=== PATIENT | male | born 1935 | race Caucasian/White ===

== ENCOUNTER → 2023-05-31 09:48 | Outpatient (REF) | payer MEDICARE, BC, SELFPAY ==
[2023-05-31 13:13] LABS: ALT (SGPT) 21 U/L (0-50); AST (SGOT) 19 U/L (17-59); Albumin 3.6 g/dl (3.5-5.0); Alkaline Phosphatase 83 U/L (38-126); Blood Urea Nitrogen 17 mg/dl (9-20); Carbon Dioxide 30 mmol/L (22-30); Chloride 102 mmol/L (98-107); Glucose 140 mg/dl (70-99); HDL Cholesterol 38 mg/dl; LDL Cholesterol, Calculated 5 mg/dl; Sodium 140 mmol/L (135-145); Total Bilirubin 0.7 mg/dl (0.2-1.3); Total Cholesterol 122 mg/dl (50-199); Total Protein 5.8 g/dl (6.3-8.2); Triglyceride 397 mg/dl (10-149); Very Low Density Lipoprotein 79 mg/dl (0-30); eGFR > 60.00
[2023-05-31 13:54] LABS: Microalbumin, Random Urine 3.5 mg/dl (0.6-1.7)
== END ==
LOC: HWLAB 09:48
PROVIDERS: ATTENDING PHYSICIAN Internal Medicine; REFERRING PHYSICIAN Internal Medicine Cardiovascular Disease
DX: E11.59 Type 2 diabetes mellitus with other circulatory complications (principal); I25.10 Atherosclerotic heart disease of native coronary artery without angina pectoris; E78.2 Mixed hyperlipidemia
CPT/HCPCS: 36415; 80053; 80061; 82043; 83036

== ENCOUNTER → 2023-07-21 10:05 | Outpatient (REF) | payer MEDICARE, BC, SELFPAY | LOC: HWRAD 10:05 | PROVIDERS: ATTENDING PHYSICIAN Internal Medicine Hematology & Oncology; FAMILY PHYSICIAN Internal Medicine | DX: C91.40 Hairy cell leukemia not having achieved remission (principal) | CPT/HCPCS: 76705 ==

== ENCOUNTER → 2023-08-01 09:38 | Outpatient (REF) | payer MEDICARE, BC, SELFPAY ==
[2023-08-01 11:44] LABS: % Basophils 0.4 % (0-2); % Eosinophils 1.1 % (0-6); % Immature Granulocytes 0.3 % (0-0.5); % Lymphocytes 59.7 % (20.5-51.1); % Monocytes 5.7 % (1.7-9.3); % Neutrophils 32.8 % (42.2-75.2); Absolute Eosinophils 0.1 10^3/uL (0-0.7); Absolute Lymphocytes 4.4 10^3/uL (1.2-3.4); Absolute Monocytes 0.4 10^3/uL (0.1-0.6); Absolute Neutrophils 2.4 10^3/uL (1.4-6.5); Hemoglobin 14.3 g/dL (13.0-18.0); Mean Corp Hgb Conc. 34.9 g/dL (33.0-37.0); Mean Corpuscular Hgb 32.3 pg (27.0-31.0); Mean Corpuscular Volume 92.6 fL (80.0-94.0); Mean Platelet Volume 11.5 fL (7.4-10.4); Nucleated Red Blood Cells % 0 % (-); Platelet Count 120 10^3/uL (130-400); Red Blood Cell Count 4.43 10^6/uL (4.70-6.10); Red Cell Dist. Width 12.9 % (11.5-14.5); White Blood Cell Count 7.4 10^3/uL (4.8-10.8)
[2023-08-03 07:41] LABS: Number Of Markers 26 markers; Source Blood
[2023-08-04 05:30] LABS: Albumin 4.07 g/dL (3.75-5.01); Alpha 1 Globulin 0.25 g/dL (0.19-0.46); Alpha 2 Globulin 0.71 g/dL (0.48-1.05); Free Kappa Light Chains,Quant 16.18 mg/L (3.30-19.40); Free Lambda Light Chains,Quant 11.24 mg/L (5.71-26.30); IgA 104 mg/dL (68-408); IgG 533 mg/dL (768-1632); IgM 51 mg/dL (35-263); Immunofixation Electrophoresis IFE Done; Kappa/Lambda Fr Light Ratio 1.44 (0.26-1.65); Total Protein-Electrophoresis 6.2 g/dL (6.3-8.2)
== END ==
LOC: HWLAB 09:38
PROVIDERS: ATTENDING PHYSICIAN Internal Medicine Hematology & Oncology; FAMILY PHYSICIAN Internal Medicine
DX: C91.40 Hairy cell leukemia not having achieved remission (principal); C91.11 Chronic lymphocytic leukemia of B-cell type in remission; R78.81 Bacteremia; D80.1 Nonfamilial hypogammaglobulinemia
CPT/HCPCS: 36415; 82784; 83521; 84155; 84165; 85025; 86334

== ENCOUNTER → 2023-10-18 12:32 | Outpatient (REF) | payer MEDICARE, BC, SELFPAY | LOC: HWLAB 12:32 | PROVIDERS: ATTENDING PHYSICIAN Specialist; FAMILY PHYSICIAN Internal Medicine | DX: C61 Malignant neoplasm of prostate (principal) | CPT/HCPCS: 36415; 84153 ==

== ENCOUNTER → 2023-11-02 12:31 | Outpatient (REF) | payer MEDICARE, BC, SELFPAY ==
[2023-11-02 15:40] LABS: Hematocrit 41.9 % (39.0-52.0); Hemoglobin 14.7 g/dL (13.0-18.0); Mean Corp Hgb Conc. 35.1 g/dL (33.0-37.0); Mean Corpuscular Hgb 32.3 pg (27.0-31.0); Mean Corpuscular Volume 92.1 fL (80.0-94.0); Mean Platelet Volume 11.2 fL (7.4-10.4); Platelet Count 132 10^3/uL (130-400); Red Blood Cell Count 4.55 10^6/uL (4.70-6.10); Red Cell Dist. Width 12.8 % (11.5-14.5); White Blood Cell Count 8.4 10^3/uL (4.8-10.8)
[2023-11-02 16:51] LABS: % Basophils 0.5 % (0-2); % Eosinophils 1.4 % (0-6); % Immature Granulocytes 0.2 % (0-0.5); % Lymphocytes 59.2 % (20.5-51.1); % Monocytes 5.5 % (1.7-9.3); % Neutrophils 33.2 % (42.2-75.2); Absolute Eosinophils 0.1 10^3/uL (0-0.7); Absolute Monocytes 0.5 10^3/uL (0.1-0.6); Absolute Neutrophils 2.8 10^3/uL (1.4-6.5); Nucleated Red Blood Cells % 0 % (-)
== END ==
LOC: HWLAB 12:31
PROVIDERS: ATTENDING PHYSICIAN Internal Medicine Hematology & Oncology; FAMILY PHYSICIAN Internal Medicine
DX: C91.40 Hairy cell leukemia not having achieved remission (principal); C91.11 Chronic lymphocytic leukemia of B-cell type in remission; R78.81 Bacteremia; D80.1 Nonfamilial hypogammaglobulinemia
CPT/HCPCS: 36415; 82784; 83521; 84155; 84165; 85025; 86334

== ENCOUNTER → 2023-11-27 12:28 | Outpatient (REF) | payer MEDICARE, BC, SELFPAY ==
[2023-11-27 15:36] LABS: IgG 603 mg/dl (700-1600)
[2023-11-27 16:03] LABS: Hematocrit 41.7 % (39.0-52.0); Hemoglobin 14.5 g/dL (13.0-18.0); Mean Corp Hgb Conc. 34.8 g/dL (33.0-37.0); Mean Corpuscular Hgb 32.4 pg (27.0-31.0); Mean Corpuscular Volume 93.1 fL (80.0-94.0); Mean Platelet Volume 11.6 fL (7.4-10.4); Platelet Count 131 10^3/uL (130-400); Red Blood Cell Count 4.48 10^6/uL (4.70-6.10); Red Cell Dist. Width 12.7 % (11.5-14.5); White Blood Cell Count 8.5 10^3/uL (4.8-10.8)
[2023-11-27 16:09] LABS: % Basophils 0.5 % (0-2); % Eosinophils 1.1 % (0-6); % Immature Granulocytes 0.2 % (0-0.5); % Lymphocytes 58.1 % (20.5-51.1); % Monocytes 6.5 % (1.7-9.3); % Neutrophils 33.6 % (42.2-75.2); Absolute Eosinophils 0.1 10^3/uL (0-0.7); Absolute Lymphocytes 4.9 10^3/uL (1.2-3.4); Absolute Monocytes 0.6 10^3/uL (0.1-0.6); Absolute Neutrophils 2.8 10^3/uL (1.4-6.5); Nucleated Red Blood Cells % 0 % (-)
== END ==
LOC: HWLAB 12:28
PROVIDERS: ATTENDING PHYSICIAN Internal Medicine Hematology & Oncology; FAMILY PHYSICIAN Internal Medicine
DX: C91.40 Hairy cell leukemia not having achieved remission (principal); C91.11 Chronic lymphocytic leukemia of B-cell type in remission; R78.81 Bacteremia; D80.1 Nonfamilial hypogammaglobulinemia
CPT/HCPCS: 36415; 82784; 85025

== ENCOUNTER → 2023-12-05 11:10 | Outpatient (REF) | payer MEDICARE, BC, SELFPAY | LOC: HWRAD 11:10 | PROVIDERS: ATTENDING PHYSICIAN Dermatology; FAMILY PHYSICIAN Internal Medicine; REFERRING PHYSICIAN Internal Medicine Hematology & Oncology | DX: L72.0 Epidermal cyst (principal) | CPT/HCPCS: 76536 ==

== ENCOUNTER → 2024-01-25 12:00 | Outpatient (REF) | payer MEDICARE, BC, SELFPAY ==
[2024-01-25 16:05] LABS: Hematocrit 42.2 % (39.0-52.0); Hemoglobin 14.3 g/dL (13.0-18.0); Mean Corp Hgb Conc. 33.9 g/dL (33.0-37.0); Mean Corpuscular Hgb 31.3 pg (27.0-31.0); Mean Corpuscular Volume 92.3 fL (80.0-94.0); Mean Platelet Volume 11.6 fL (7.4-10.4); Platelet Count 126 10^3/uL (130-400); Red Blood Cell Count 4.57 10^6/uL (4.70-6.10); Red Cell Dist. Width 13.1 % (11.5-14.5); White Blood Cell Count 8.9 10^3/uL (4.8-10.8)
[2024-01-25 16:50] LABS: IgG 570 mg/dl (700-1600)
[2024-01-25 16:59] LABS: % Basophils 0.5 % (0-2); % Immature Granulocytes 0.3 % (0-0.5); % Lymphocytes 56.3 % (20.5-51.1); % Neutrophils 34.9 % (42.2-75.2); Absolute Eosinophils 0.2 10^3/uL (0-0.7); Absolute Monocytes 0.5 10^3/uL (0.1-0.6); Absolute Neutrophils 3.1 10^3/uL (1.4-6.5); Nucleated Red Blood Cells % 0 % (-)
== END ==
LOC: HWLAB 12:00
PROVIDERS: ATTENDING PHYSICIAN Internal Medicine Hematology & Oncology; FAMILY PHYSICIAN Internal Medicine
DX: C91.40 Hairy cell leukemia not having achieved remission (principal); C91.11 Chronic lymphocytic leukemia of B-cell type in remission; R78.81 Bacteremia; D80.1 Nonfamilial hypogammaglobulinemia
CPT/HCPCS: 36415; 82784; 83521; 84155; 84165; 85025; 86334

== ENCOUNTER → 2024-03-01 14:09 | Outpatient (REF) | payer MEDICARE, BC, SELFPAY | LOC: RAD 14:09 | PROVIDERS: ATTENDING PHYSICIAN Otolaryngology Facial Plastic Surgery; FAMILY PHYSICIAN Internal Medicine | DX: H60.312 Diffuse otitis externa, left ear (principal) | CPT/HCPCS: 70480 ==

== ENCOUNTER → 2024-04-15 12:59 | Outpatient (REF) | payer MEDICARE, BC, SELFPAY ==
[2024-04-15 16:32] LABS: IgA 106 mg/dl (70-400); IgG 717 mg/dl (700-1600); IgM 68 mg/dl (40-230)
[2024-04-15 17:49] LABS: % Basophils 0.5 % (0-2); % Eosinophils 2.4 % (0-6); % Immature Granulocytes 0.3 % (0-0.5); % Neutrophils 34.8 % (42.2-75.2); Absolute Eosinophils 0.2 10^3/uL (0-0.7); Absolute Lymphocytes 4.4 10^3/uL (1.2-3.4); Absolute Monocytes 0.5 10^3/uL (0.1-0.6); Absolute Neutrophils 2.7 10^3/uL (1.4-6.5); Hematocrit 42.4 % (39.0-52.0); Mean Corpuscular Hgb 31.9 pg (27.0-31.0); Mean Corpuscular Volume 96.6 fL (80.0-94.0); Mean Platelet Volume 11.3 fL (7.4-10.4); Nucleated Red Blood Cells % 0 % (-); Platelet Count 126 10^3/uL (130-400); Red Blood Cell Count 4.39 10^6/uL (4.70-6.10); Red Cell Dist. Width 13.2 % (11.5-14.5); White Blood Cell Count 7.8 10^3/uL (4.8-10.8)
== END ==
LOC: HWLAB 12:59
PROVIDERS: ATTENDING PHYSICIAN Internal Medicine Hematology & Oncology; FAMILY PHYSICIAN Internal Medicine
DX: C91.40 Hairy cell leukemia not having achieved remission (principal); C91.11 Chronic lymphocytic leukemia of B-cell type in remission; R78.81 Bacteremia; D80.1 Nonfamilial hypogammaglobulinemia
CPT/HCPCS: 36415; 82784; 85025

== ENCOUNTER → 2024-06-04 10:45 | Outpatient (REF) | payer MEDICARE, BC, SELFPAY ==
[2024-06-04 12:58] LABS: Hemoglobin 14.6 g/dL (13.0-18.0); Mean Corpuscular Hgb 31.8 pg (27.0-31.0); Mean Corpuscular Volume 93.7 fL (80.0-94.0); Mean Platelet Volume 10.8 fL (7.4-10.4); Platelet Count 121 10^3/uL (130-400); Red Blood Cell Count 4.59 10^6/uL (4.70-6.10); Red Cell Dist. Width 13.2 % (11.5-14.5)
[2024-06-04 13:02] LABS: ALT (SGPT) 50 U/L (0-50); AST (SGOT) 23 U/L (17-59); Alkaline Phosphatase 74 U/L (38-126); Blood Urea Nitrogen 21 mg/dl (9-20); Calcium 9.4 mg/dl (8.4-10.2); Carbon Dioxide 31 mmol/L (22-30); Chloride 103 mmol/L (98-107); Glucose 145 mg/dl (70-99); HDL Cholesterol 40 mg/dl; LDL Cholesterol, Calculated 53 mg/dl; Potassium 4.7 mmol/L (3.5-5.1); Sodium 139 mmol/L (135-145); Total Bilirubin 0.6 mg/dl (0.2-1.3); Total Cholesterol 119 mg/dl (50-199); Total Protein 6.3 g/dl (6.3-8.2); Triglyceride 133 mg/dl (10-149); Very Low Density Lipoprotein 26 mg/dl (0-30)
[2024-06-04 13:16] LABS: Microalbumin, Random Urine 3.2 mg/dl (0.6-1.7); Microalbumin/creatinine Ratio 17.7 mg/g
[2024-06-04 13:55] LABS: Glycohemoglobin (HgbA1c) 6.8 % (4.0-5.6)
[2024-06-04 14:20] LABS: % Basophils 0.2 % (0-2); % Eosinophils 1.2 % (0-6); % Immature Granulocytes 0.2 % (0-0.5); % Monocytes 5.7 % (1.7-9.3); % Neutrophils 36.7 % (42.2-75.2); Absolute Eosinophils 0.1 10^3/uL (0-0.7); Absolute Lymphocytes 4.5 10^3/uL (1.2-3.4); Absolute Monocytes 0.5 10^3/uL (0.1-0.6); Absolute Neutrophils 2.9 10^3/uL (1.4-6.5); Nucleated Red Blood Cells % 0 % (-)
== END ==
LOC: HWLAB 10:45
PROVIDERS: ATTENDING PHYSICIAN Internal Medicine Cardiovascular Disease; FAMILY PHYSICIAN Internal Medicine
DX: I10 Essential (primary) hypertension (principal); E11.59 Type 2 diabetes mellitus with other circulatory complications; I25.10 Atherosclerotic heart disease of native coronary artery without angina pectoris; E78.2 Mixed hyperlipidemia
CPT/HCPCS: 36415; 80053; 80061; 82043; 82570; 83036; 85025

== ENCOUNTER → 2024-07-29 15:00 | Outpatient (REF) | payer MEDICARE, BC, SELFPAY ==
[2024-07-29 16:15] LABS: C-Reactive Protein < 5.00 mg/L (0.0-10.00)
[2024-07-29 16:20] LABS: IgA 114 mg/dl (70-400)
[2024-07-29 16:23] LABS: Erythrocyte Sed Rate 10 mm/hour (0-20)
[2024-07-29 16:46] LABS: TSH Reflex To Free T4 2.54 uIU/ml (0.47-4.68)
[2024-08-01 00:46] LABS: tTG IgA Antibody <1.02 FLU (0.00-4.99)
== END ==
LOC: REG 15:00
PROVIDERS: ATTENDING PHYSICIAN Physician Assistant; FAMILY PHYSICIAN Internal Medicine
DX: R19.4 Change in bowel habit (principal)
CPT/HCPCS: 36415; 74018; 82784; 83516; 84443; 85652; 86140; 86231

== ENCOUNTER → 2024-08-28 10:15 | Outpatient (REF) | payer MEDICARE, BC, SELFPAY ==
[2024-08-28 12:32] LABS: Hematocrit 38.7 % (39.0-52.0); Hemoglobin 13.3 g/dL (13.0-18.0); Mean Corp Hgb Conc. 34.4 g/dL (33.0-37.0); Mean Corpuscular Hgb 32.6 pg (27.0-31.0); Mean Corpuscular Volume 94.9 fL (80.0-94.0); Mean Platelet Volume 11.9 fL (7.4-10.4); Platelet Count 108 10^3/uL (130-400); Red Blood Cell Count 4.08 10^6/uL (4.70-6.10); Red Cell Dist. Width 12.9 % (11.5-14.5); White Blood Cell Count 8.2 10^3/uL (4.8-10.8)
[2024-08-28 13:34] LABS: % Basophils 0.2 % (0-2); % Eosinophils 1.3 % (0-6); % Immature Granulocytes 0.2 % (0-0.5); % Lymphocytes 57.5 % (20.5-51.1); % Monocytes 7.7 % (1.7-9.3); % Neutrophils 33.1 % (42.2-75.2); Absolute Eosinophils 0.1 10^3/uL (0-0.7); Absolute Lymphocytes 4.7 10^3/uL (1.2-3.4); Absolute Monocytes 0.6 10^3/uL (0.1-0.6); Absolute Neutrophils 2.7 10^3/uL (1.4-6.5); Nucleated Red Blood Cells % 0 % (-)
[2024-08-28 23:17] LABS: IgG 566 mg/dl (700-1600)
== END ==
LOC: HWLAB 10:15
PROVIDERS: ATTENDING PHYSICIAN Nurse Practitioner Adult Health; FAMILY PHYSICIAN Internal Medicine
DX: C91.40 Hairy cell leukemia not having achieved remission (principal); C91.11 Chronic lymphocytic leukemia of B-cell type in remission; R78.81 Bacteremia; D80.1 Nonfamilial hypogammaglobulinemia
CPT/HCPCS: 36415; 82784; 85025

== ENCOUNTER → 2024-10-01 13:41 | Outpatient (REF) | payer MEDICARE, BC, SELFPAY ==
[2024-10-01 16:08] LABS: Hematocrit 40.6 % (39.0-52.0); Mean Corp Hgb Conc. 34.5 g/dL (33.0-37.0); Mean Corpuscular Hgb 32.6 pg (27.0-31.0); Mean Corpuscular Volume 94.6 fL (80.0-94.0); Mean Platelet Volume 11.6 fL (7.4-10.4); Platelet Count 114 10^3/uL (130-400); Red Blood Cell Count 4.29 10^6/uL (4.70-6.10); Red Cell Dist. Width 12.9 % (11.5-14.5); White Blood Cell Count 6.7 10^3/uL (4.8-10.8)
[2024-10-01 18:29] LABS: % Basophils 0.4 % (0-2); % Eosinophils 1.2 % (0-6); % Immature Granulocytes 0.3 % (0-0.5); % Monocytes 5.7 % (1.7-9.3); % Neutrophils 31.4 % (42.2-75.2); Absolute Eosinophils 0.1 10^3/uL (0-0.7); Absolute Lymphocytes 4.1 10^3/uL (1.2-3.4); Absolute Monocytes 0.4 10^3/uL (0.1-0.6); Absolute Neutrophils 2.1 10^3/uL (1.4-6.5); Nucleated Red Blood Cells % 0 % (-)
[2024-10-03 02:03] LABS: IgA 109 mg/dl (70-400); IgG 1140 mg/dl (700-1600); IgM 50 mg/dl (40-230)
== END ==
LOC: HWLAB 13:41
PROVIDERS: ATTENDING PHYSICIAN Internal Medicine Hematology & Oncology; FAMILY PHYSICIAN Internal Medicine
DX: C91.40 Hairy cell leukemia not having achieved remission (principal); C91.11 Chronic lymphocytic leukemia of B-cell type in remission; R78.81 Bacteremia; D80.1 Nonfamilial hypogammaglobulinemia
CPT/HCPCS: 36415; 82784; 85025

== ENCOUNTER 2024-11-01 06:21 | Day surgery (SDC) | payer MEDICARE, BC, SELFPAY ==
[2024-11-01 11:10] LABS: Glucose - Point of Care 122 mg/dl (70-99)
== END 2024-11-01 12:08 | disposition home or self-care (01) ==
LOC: GI 06:21
PROVIDERS: ATTENDING PHYSICIAN Internal Medicine Gastroenterology
DX: R19.7 Diarrhea, unspecified (principal); K57.30 Diverticulosis of large intestine without perforation or abscess without bleeding; D12.4 Benign neoplasm of descending colon
CPT/HCPCS: 45331; 82962; 88305

== ENCOUNTER → 2024-12-17 13:28 | Outpatient (REF) | payer MEDICARE, BC, SELFPAY ==
[2024-12-17 16:41] LABS: Hematocrit 41.6 % (39.0-52.0); Hemoglobin 14.0 g/dL (13.0-18.0); Mean Corp Hgb Conc. 33.7 g/dL (33.0-37.0); Mean Corpuscular Volume 95.4 fL (80.0-94.0); Platelet Count 121 10^3/uL (130-400); Red Cell Dist. Width 13.0 % (11.5-14.5)
[2024-12-17 16:48] LABS: Microalb - Urine Creatinine 38.500 mg/dl
[2024-12-17 16:49] LABS: Microalbumin, Random Urine 0.7 mg/dl (0.6-1.7)
[2024-12-17 18:56] LABS: Nucleated Red Blood Cells % 0.2 % (-)
[2024-12-18 09:25] LABS: Glycohemoglobin (HgbA1c) 6.5 % (4.0-5.6)
== END ==
LOC: HWLAB 13:28
PROVIDERS: ATTENDING PHYSICIAN Internal Medicine Hematology & Oncology; FAMILY PHYSICIAN Internal Medicine
DX: E11.59 Type 2 diabetes mellitus with other circulatory complications (principal); C91.40 Hairy cell leukemia not having achieved remission; C91.11 Chronic lymphocytic leukemia of B-cell type in remission; R78.81 Bacteremia; D80.1 Nonfamilial hypogammaglobulinemia
CPT/HCPCS: 36415; 82043; 82570; 82784; 83036; 85025

== ENCOUNTER → 2025-02-27 12:16 | Outpatient (REF) | payer MEDICARE, BC, SELFPAY ==
[2025-02-27 16:14] LABS: Hematocrit 44.3 % (39.0-52.0); Hemoglobin 14.7 g/dL (13.0-18.0); Mean Corp Hgb Conc. 33.2 g/dL (33.0-37.0); Mean Corpuscular Volume 96.5 fL (80.0-94.0); Platelet Count 119 10^3/uL (130-400); Red Cell Dist. Width 13.1 % (11.5-14.5)
[2025-02-27 19:24] LABS: Absolute Neutrophils -Man Diff 3.1 10^3/uL (1.4-6.5)
[2025-02-27 19:28] LABS: Normal RBC Morphology Yes; Platelets Checked Yes
[2025-02-27 19:29] LABS: Total Cells Counted 100
== END ==
LOC: HWLAB 12:16
PROVIDERS: ATTENDING PHYSICIAN Internal Medicine Hematology & Oncology; FAMILY PHYSICIAN Internal Medicine
DX: C91.40 Hairy cell leukemia not having achieved remission (principal); C91.11 Chronic lymphocytic leukemia of B-cell type in remission; R78.81 Bacteremia; D80.1 Nonfamilial hypogammaglobulinemia
CPT/HCPCS: 36415; 82784; 85025